=== PATIENT | male | born 1975 | race Caucasian/White ===

== ENCOUNTER 2022-05-14 23:10 | Emergency (ER) | payer MEDICAID ==
[~2022-05-14] VITALS: Ht 170.2 cm; Wt 68.0 kg
[2022-05-14 23:15] VITALS: BP 138/74
--- NOTE | 2022-05-14 23:51 | NUR ---
BIB self with c/o right shoulder pain. per pt, he had slipped on snow a few hours ago and he has been unable to move his right shoulder since. pt state 8/10 pain to right shoulder. denies any medical hx. denies any allergies.
[2022-05-15 01:26] VITALS: BP 120/77
[2022-05-15] MEDS ORDERED: KETOROLAC 30 MG/ML VIAL IM ONE (02:00)
[2022-05-15] MEDS ORDERED: NAPR-54 PO (02:10)
[2022-05-15] MEDS ORDERED: CYCL-711 PO (02:10)
--- NOTE | 2022-05-15 02:15 | NUR ---
Patient discharged with v/s stable. Written and verbal after care instructions given and explained. Patient verbalized understanding. Ambulatory with steady gait. All questions addressed prior to discharge. Advised to follow up with PMD.
== END 2022-05-15 02:15 | disposition home or self-care (01) ==
LOC: MED 23:10
DX: S46.811A Strain of other muscles, fascia and tendons at shoulder and upper arm level, right arm, initial encounter (principal); Z79.899 Other long term (current) drug therapy; W00.1XXA Fall from stairs and steps due to ice and snow, initial encounter; Y93.01 Activity, walking, marching and hiking; Y92.89 Other specified places as the place of occurrence of the external cause; Y99.8 Other external cause status
CPT/HCPCS: 73030; 96372; 99283; J1885; Q0092

== ENCOUNTER 2023-01-19 23:04 | Emergency (ER) | payer MEDICAID ==
[~2023-01-19] VITALS: Ht 170.2 cm; Wt 70.8 kg
[~2023-01-19 23:04] MED LIST: CYCL-711 PO; NAPR-54 PO
[2023-01-19 23:09] VITALS: BP 122/82; PULSE 71; RESP 18; TEMP 97.3; O2SAT 98
[2023-01-20] MEDS ORDERED: NAPR-54 PO (03:04)
== END 2023-01-20 03:10 | disposition home or self-care (01) ==
LOC: MED 23:04
DX: S92.351A Displaced fracture of fifth metatarsal bone, right foot, initial encounter for closed fracture (principal); X58.XXXA Exposure to other specified factors, initial encounter; Y93.89 Activity, other specified; Y92.89 Other specified places as the place of occurrence of the external cause; Y99.8 Other external cause status
CPT/HCPCS: 29515; 73610; 73630; 99284

== ENCOUNTER 2023-06-30 00:26 | Emergency (ER) | payer MEDICAID ==
[~2023-06-30] VITALS: Ht 160 cm; Wt 73.1 kg
[2023-06-30 01:06] VITALS: BP 115/81; PULSE 71; RESP 16; TEMP 96.9; O2SAT 98
[2023-06-30] MEDS ORDERED: MELO-176 PO (01:48)
== END 2023-06-30 01:58 | disposition home or self-care (01) ==
LOC: MED 00:26
DX: S62.634A Displaced fracture of distal phalanx of right ring finger, initial encounter for closed fracture (principal); Z79.899 Other long term (current) drug therapy; W20.8XXA Other cause of strike by thrown, projected or falling object, initial encounter; Y93.89 Activity, other specified; Y92.89 Other specified places as the place of occurrence of the external cause; Y99.8 Other external cause status
CPT/HCPCS: 73140; 99283